=== PATIENT | male | born 1955 | race Caucasian/White ===

== ENCOUNTER 2018-11-08 09:53 | Day surgery (SDC) | payer BC ==
[2018-11-07 11:19] VITALS: BMI 28.0
[~2018-11-08 09:53] MED LIST: LIDOCAINE 1% 20 ML VIAL (10MG/ML) FOR IV START INTRADERMA PRN
[2018-11-08 10:54] VITALS: RESP 18; TEMP 97.2
[2018-11-08] MEDS: LACTATED RINGERS 1,000 ML IV SCH ×2 (11:02→12:35)
[2018-11-08] MEDS ORDERED: LIDOCAINE 1% INJ 10MG/ML (20 ML MDV) ONE (12:37)
[2018-11-08] MEDS ORDERED: PROPOFOL 10 MG/ML 20 ML VIAL IV ONE (12:37)
[2018-11-08 13:24] VITALS: BP 129/82; PULSE 98
--- NOTE | 2018-11-09 06:04 | PCN ---
PROCEDURE NOTE DATE OF SERVICE: 11/08/2018. PROCEDURE: Total colonoscopy. PREOPERATIVE DIAGNOSIS: Screening for neoplasia, patient has family history of colon cancer in his father. POSTOPERATIVE DIAGNOSES: 1. Sigmoid diverticulosis with no evidence of acute diverticulitis or strictures. 2. No polyps or tumors seen. PREPARATION: Half Lightly prep. SEDATION: Sedation was provided by Anesthesia. BRIEF CLINICAL HISTORY: The patient is a 62-year-old male who is scheduled for this evaluation for screening for neoplasia because of family history of colon cancer in his father. The patient had several exams every 5 years since he was 41. He has no abdominal complaints, bleeding or anemia. PROCEDURE: With the patient on his left lateral decubitus position and after informed consent and adequate sedation, the perianal area was inspected and it did not show any fissures or fistulas. There were no masses felt on digital rectal examination. The Olympus CF- H190L video colonoscope was then inserted in the rectum in the usual fashion and advanced to the cecum. There were multiple diverticular orifices seen scattered in the sigmoid with no evidence of acute diverticulitis or strictures. The mucosa appeared healthy. No polyps or tumors were seen. I retroflexed the endoscope in the rectum before the endoscope was withdrawn. The patient tolerated the procedure well. PLAN: The patient was reassured. Discussed dietary measures. He will follow up with you as planned and recommended repeat exam in 5 years. MMODL / IJN: [id number] /
== END 2018-11-08 14:00 | disposition home or self-care (01) ==
LOC: ORWHC2ENDO 09:53
DX: Z12.11 Encounter for screening for malignant neoplasm of colon (principal); K57.30 Diverticulosis of large intestine without perforation or abscess without bleeding; K21.9 Gastro-esophageal reflux disease without esophagitis; I10 Essential (primary) hypertension; Z88.0 Allergy status to penicillin; Z79.82 Long term (current) use of aspirin; Z79.899 Other long term (current) drug therapy; Z80.0 Family history of malignant neoplasm of digestive organs
CPT/HCPCS: J2001; J2704; G0105; 45378